=== PATIENT | female | born 1960 | race Hispanic/Latino ===

== ENCOUNTER 2018-01-03 09:45 | Outpatient (CLI) | payer OTHER ==
--- NOTE | 2018-01-03 19:17 | XRay Report ---
FINAL REPORT EXAM: XR HUMERUS 2+V RT HISTORY: SEVERE DROP FOOT, REPEATED FALLS, PARALYTIC GAIT, STROKE TECHNIQUE: Right humerus two views PRIORS: None. FINDINGS: There is intramedullary laura with within the humerus bridging remote healed mid humeral fracture. Margins are corticated. The hardware is intact and demonstrates expected positioning. No acute bony findings identified IMPRESSION: Status post ORIF of healed mid humeral fracture with intramedullary laura in place
--- NOTE | 2018-01-03 19:40 | XRay Report ---
FINAL REPORT EXAM: XR FOREARM RT HISTORY: SEVERE DROP FOOT, REPEATED FALLS, PARALYTIC GAIT, STROKE TECHNIQUE: Right forearm two views PRIORS: None. FINDINGS: No fracture is identified. The joint spaces are within normal limits. No focal bony lesion identified. No radiopaque foreign body seen. IMPRESSION: Negative no acute abnormality.
--- NOTE | 2018-01-03 19:44 | XRay Report ---
FINAL REPORT EXAM: XR ANKLE 2V RT HISTORY: SEVERE DROP FOOT, REPEATED FALLS, PARALYTIC GAIT, STROKE TECHNIQUE: 2 views right ankle PRIORS: None. FINDINGS: No fracture is identified. No dislocation seen. Ankle mortise is intact no evidence of joint space widening. No erosive or degenerative changes are identified. No evidence of joint effusion. IMPRESSION: Negative ankle series
== END 2018-01-03 09:46 | disposition home or self-care (01) ==
LOC: XRAY 09:45
PROVIDERS: ATTEND Internal Medicine
DX: S42.301D Unspecified fracture of shaft of humerus, right arm, subsequent encounter for fracture with routine healing (principal); M21.371 Foot drop, right foot; R29.6 Repeated falls; R26.1 Paralytic gait; I50.9 Heart failure, unspecified; Z98.890 Other specified postprocedural states; Z86.73 Personal history of transient ischemic attack (TIA), and cerebral infarction without residual deficits; X58.XXXD Exposure to other specified factors, subsequent encounter